=== PATIENT | female | born 1995 | race Caucasian/White ===

== ENCOUNTER 2017-08-17 03:55 | Emergency (ER) | payer OTHER ==
[2017-08-17] MEDS ORDERED: NORMAL SALINE 1000 ML 1,000 ML IV ONE (04:12)
[2017-08-17] MEDS ORDERED: ONDANSETRON HCL INJ/PF 4 MG/2 ML SDV IV ONE (04:12)
--- NOTE | 2017-08-17 04:15 | ER Document Report ---
ED General - General Chief Complaint: Abdominal Pain Stated Complaint: ABDOMINAL PAIN/DIARRHEA/VOMITING Time Seen by Provider: 08/17/17 04:07 Notes: Patient is a 20-year-old female presents with complaint of abdominal pain vomiting diarrhea for 3 days. She said the first day she did have some fever but she has had no fever since then. No dysuria. No abnormal vaginal bleeding or discharge. She says her stool is watery. No blood in her stool. No blood or emesis. Said the pain is pre-much diffuse across her abdomen and feels like a pressure inside her abdomen. She denies any history of abdominal surgeries. She is otherwise healthy. She has not been outside the country. She does not eat undercooked or raw foods. She is unsure if she is drinking well water. They do rent a house that has a well outside but they are unsure if the water comes from the well or from the city. The drinks the same water and has not been sick. Past Medical History - Social History Smoking Status: Never Smoker Frequency of alcohol use: None Drug Abuse: None Family History: Reviewed & Not Pertinent Review of Systems - Review of Systems Notes: My Normal Review Basic REVIEW OF SYSTEMS: CONSTITUTIONAL : Fever 3 days ago. EENT: Denies eye, ear, throat, or mouth pain or symptoms. Denies nasal or sinus congestion. RESPIRATORY: Denies cough, cold, or chest congestion. Denies shortness of breath, difficulty breathing, or wheezing. GASTROINTESTINAL: Abdominal pain, vomiting, diarrhea. SKIN: Denies rash or skin lesions. NEUROLOGICAL: Denies altered mental status or loss of consciousness. Denies headache. Denies weakness or paralysis or loss of use of either side. Denies problems with gait or speech. Denies sensory or motor loss. ALL OTHER SYSTEMS REVIEWED AND NEGATIVE. Physical Exam - Vital signs Vitals: Temp Pulse Resp BP Pulse Ox 98.4 F 99 18 117/17 L 100 08/17/17 03:55 08/17/17 03:55 08/17/17 03:55 08/17/17 03:55 08/17/17 03:55 - Notes Notes: General Appearance: Well nourished, alert, cooperative, no acute distress, no obvious discomfort. Well-appearing. Vitals: reviewed, See vital signs table. Head: no swelling or tenderness to the head Eyes: PERRL, EOMI, Conjuctiva clear Mouth: No decreasd moisture Lungs: No wheezing, No rales, No rhonci, No accessory muscle use, good air exchange bilaterally. Heart: Normal rate, Regular rythm, No murmur, no rub Abdomen: Normal BS, soft, No rigidity, very mild right lower quadrant dull tenderness palpation. Remainder of the abdomen is nontender., No guarding, no rebound, Extremities: strength 5/5 in all extremities, good pulses in all extremities, no swelling or tenderness in the extremities, no edema. Skin: warm, dry, appropriate color, no rash Neuro: speech clear, oriented x 3, normal affect, responds appropriately to questions. Course - Re-evaluation Re-evalutation: 08/17/17 05:28 On reevaluation patient says she feels much improved. On exam she still has very mild tenderness to palpation of her right lower quadrant. She says she just feels as if she has some mild pressure in her abdomen. She says her nausea is gone her vomiting is controlled. Her symptoms have been ongoing now for 3 days and she has no leukocytosis and the pain over her right lower quadrant palpation is very mild. I therefore do not think CT scan is appropriate at this time. I talked her length about this. I informed her that I feel the risk of radiation is not outweigh the benefits being that her pain is mild, she does not have rebound tenderness, no guarding, and because she does not have a leukocytosis. I informed her the better course of action would be to return to ER in 24 hours for reevaluation if she still having any pain. At that time she still having pain then she will be reevaluated and potentially a CT scan for further evaluation. Patient is agreeable to this and understands this. I feel this is appropriate's patient and her both seem very reliable and are in agreement with the plan. I informed her that despite her normal workup today she must have a very low threshold to return to ER immediately if she does have worsening right lower quadrant abdominal pain, fevers, recurrent vomiting, or if she feels that she is worsening in any way. Patient agrees with this and will be discharged home. Urinalysis was initially ordered but the patient has absolutely no urinary symptoms. Urinalysis therefore was canceled. Dictation of this chart was performed using voice recognition software; therefore, there may be some unintended grammatical errors. 08/17/17 05:30 08/17/17 05:30 - Vital Signs Vital signs: Temp Pulse Resp BP Pulse Ox 98.4 F 99 18 117/17 L 100 08/17/17 03:55 08/17/17 03:55 08/17/17 03:55 08/17/17 03:55 08/17/17 03:55 - Laboratory Result Diagrams: 08/17/17 04:30 08/17/17 04:30 Laboratory results interpreted by me: 08/17/17 08/17/17 04:30 04:30 Plt Count 501 H Potassium 3.5 L Total Protein 9.1 H Albumin 5.4 H Discharge - Discharge Clinical Impression: Vomiting and diarrhea Abdominal pain Qualifiers: Abdominal location: right lower quadrant Qualified Code(s): R10.31 - Right lower quadrant pain Condition: Good Disposition: HOME, SELF-CARE Additional Instructions: Your blood work does not show any concerning findings. As discussed with you, you do have some pain over the right lower quadrant portion of the abdomen which is where the appendix is located. Your exam currently is not consistent with appendicitis in that you do not have any rebound tenderness and your abdomen is not very tender to palpation over this area. At this time we will forego doing a CT scan and have you come back in 24 hours for reevaluation. It is very important that you have a low threshold to return to the ER immediately if you have worsening pain, recurrent vomiting, or any fevers. Again, do not delay coming back if you feel that your pain is worsening in any way. Prescriptions: Ondansetron [Zofran Odt 4 mg Tablet] 1 tab PO Q4H PRN #15 tab.rapdis PRN Reason: For Nausea/Vomiting Forms: Return to Work
[2017-08-17 04:51] LABS: ABSOLUTE BASOPHILS # (AUTO) 0.1 10^3/uL (0.0-0.2); ABSOLUTE EOSINOPHILS # (AUTO) 0.1 10^3/uL (0.0-0.6); ABSOLUTE MONOCYTES (AUTO) 0.6 10^3/uL (0.1-1.4); ABSOLUTE NEUT (AUTO) 4.3 10^3/uL (1.7-8.2); BASOPHILS % (AUTO) 0.8 % (0-2); HEMOGLOBIN 14.1 g/dL (12.0-15.5); LYMPHOCYTES % (AUTO) 28.5 % (13-45); MEAN CORPUSCULAR HGB CONC 33.5 g/dL (32.0-36.0); MEAN CORPUSCULAR VOLUME 90 fl (80-97); MONOCYTES % (AUTO) 8.3 % (3-13); PLATELET COUNT 501 10^3/uL (150-450); RED BLOOD COUNT 4.69 10^6/uL (3.72-5.28); RED CELL DISTRIBUTION WIDTH 12.6 % (11.5-14.0); SEGMENTED NEUTROPHILS % (AUTO) 61.4 % (42-78); TOTAL CELLS COUNTED % (AUTO) 100 %; WHITE BLOOD COUNT 7.1 10^3/uL (4.0-10.5)
[2017-08-17 05:05] LABS: ALANINE AMINOTRANSFERASE 36 U/L (9-52); ALBUMIN 5.4 g/dL (3.5-5.0); ALKALINE PHOSPHATASE 63 U/L (38-126); ANION GAP 14 (5-19); ASPARTATE AMINO TRANSFERASE 30 U/L (14-36); BILIRUBIN,DIRECT 0.2 mg/dL (0.0-0.4); BILIRUBIN,TOTAL 0.3 mg/dL (0.2-1.3); BLOOD UREA NITROGEN 7 mg/dL (7-20); CALCIUM 9.7 mg/dL (8.4-10.2); CARBON DIOXIDE 28 mmol/L (22-30); CHLORIDE 102 mmol/L (98-107); GLUCOSE 97 mg/dL (75-110); POTASSIUM 3.5 mmol/L (3.6-5.0); SODIUM 143.9 mmol/L (137-145); TOTAL PROTEIN 9.1 g/dL (6.3-8.2)
[2017-08-17] MEDS ORDERED: SIMETHICONE 80 MG TAB.CHEW PO ONE (05:23)
[2017-08-17 05:44] LABS: AMORPHOUS SEDIMENT,URINE TRACE /HPF; APPEARANCE,URINE SLIGHTLY-CLOUDY; BILIRUBIN,URINE NEGATIVE (NEGATIVE); COLOR,URINE YELLOW; GLUCOSE, URINE NEGATIVE (NEGATIVE); KETONES,URINE NEGATIVE (NEGATIVE); LEUKOCYTE ESTERASE,URINE NEGATIVE (NEGATIVE); NITRITE,URINE NEGATIVE (NEGATIVE); PROTEIN,URINE NEGATIVE (NEGATIVE); URINE SPECIFIC GRAVITY 1.013; UROBILINOGEN,URINE NEGATIVE mg/dL (<2.0)
[2017-08-17 06:06] VITALS: BP 118/62
== END 2017-08-17 06:05 | disposition home or self-care (01) ==
LOC: ER 03:55
DX: R10.31 Right lower quadrant pain (principal); R11.2 Nausea with vomiting, unspecified; R19.7 Diarrhea, unspecified
CPT/HCPCS: 99284; 96361; 96374; 36415; 84703; 85025; 80053; 81001; J2405; J7030